=== PATIENT | male | born 1985 | race Caucasian/White ===

== ENCOUNTER → 2020-12-30 13:48 | Outpatient (CLI) | payer OTHER, SELFPAY ==
[2020-12-30] MEDS: COVID-19 VACC #1, MRNA(MOD) 100 MCG/0.5 ML VIAL IM (13:58)
== END ==
PROVIDERS: Visit Provider Internal Medicine
DX: Z23 Encounter for immunization (principal)
CPT/HCPCS: 0011A; 91301

== ENCOUNTER → 2021-01-27 10:59 | Outpatient (CLI) | payer OTHER, SELFPAY ==
[2021-01-27] MEDS: COVID-19 VACC #2, MRNA(MOD) 100 MCG/0.5 ML VIAL IM (11:16)
== END ==
PROVIDERS: Visit Provider Internal Medicine
DX: Z23 Encounter for immunization (principal)
CPT/HCPCS: 0012A; 91301

== ENCOUNTER → 2021-03-19 10:32 | Outpatient (CLI) | payer OTHER, SELFPAY ==
--- NOTE | 2021-03-19 10:33 | DI.US.S_ITS ---
PROCEDURE: US SCROTUM INDICATIONS: Right sided scrotal pain TECHNIQUE: Real-time scanning was performed of the scrotum and testicles, with image documentation. Color and pulse Doppler interrogation was performed of both testicles. COMPARISON: None. FINDINGS: Right: Testicle is normal in size at 5.5 x 2.4 x 3.2 cm, and homogenous in echotexture. Epididymis is normal in overall size and morphology. No hydrocele or varicoceles. Overlying scrotal skin is normal in thickness. Left: Testicle is normal in size at 3.7 x 2.5 x 3.7 cm, and homogeneous in echotexture. Epididymis is normal in overall size and morphology. No varicoceles. Small left hydrocele. Overlying scrotal skin is normal in thickness. Doppler: Color and pulse Doppler demonstrate normal and symmetric arterial flow in both testicles. IMPRESSION: Small left hydrocele. Otherwise, unremarkable sonographic evaluation of the testicles and scrotum. Dictated by: Noman Ramirez M.D. on 03/19/2021 at 14:20 Approved by: Noman Ramirez M.D. on 03/19/2021 at 14:21
== END ==
PROVIDERS: PCP Student in an Organized Health Care Education/Training Program; Referring Provider Student in an Organized Health Care Education/Training Program; Visit Provider Student in an Organized Health Care Education/Training Program
DX: N50.811 Right testicular pain (principal)
CPT/HCPCS: 76870

== ENCOUNTER → 2021-04-01 11:51 | Outpatient (CLI) | payer OTHER, SELFPAY ==
[2021-04-01 13:32] LABS: Cholesterol 116 mg/dL (140-199); HDL Cholesterol 48 mg/dL (40-60); LDL Cholesterol Calculated 53 mg/dL (<100); Triglycerides 73 mg/dL (35-150)
[2021-04-01 17:07] LABS: Hepatitis B Surface Antigen NEGATIVE s/c (NEGATIVE)
[2021-04-01 17:21] LABS: HIV 1 & 2 Ab/Ag 4th Gen Combo NEGATIVE (NEGATIVE); Hep C Virus Ab w/Reflex Quant NEGATIVE s/c (NEGATIVE)
[2021-04-02 04:27] LABS: Hepatitis B Surf Ab Qualitativ Reactive (.)
[2021-04-02 07:48] LABS: Hepatitis B Core Antibody Negative (Negative)
== END ==
PROVIDERS: PCP Student in an Organized Health Care Education/Training Program; Referring Provider Student in an Organized Health Care Education/Training Program; Visit Provider Student in an Organized Health Care Education/Training Program
DX: E55.9 Vitamin D deficiency, unspecified (principal); Z72.51 High risk heterosexual behavior; Z13.220 Encounter for screening for lipoid disorders
CPT/HCPCS: 36415; 80061; 82306; 86704; 86706; 86803; 87340; 87389